=== PATIENT | male | born 1935 | race Caucasian/White ===

== ENCOUNTER 2017-05-06 00:58 | Emergency (ER) | payer OTHER ==
[2017-05-06 01:03] VITALS: RESP 16
[2017-05-06 01:05] VITALS: TEMP 97.9
--- NOTE | 2017-05-06 02:22 | EDPHY ---
H & P Stated Complaint: r big toe injury vs hit against curb Time Seen by Provider: 05/06/17 02:03 HPI/ROS: HPI The patient presents with a fall which occurred earlier this evening in which he hit his great toe on a curb. He has had intermittent pain which is achy in nature and not associated with any numbness or tingling. He took Tylenol without any improvement of his pain. He was unable to sleep so came into the emergency room. REVIEW OF SYSTEMS Constitutional: No fever, no chills. Musculoskeletal: No back pain. Skin: No rashes. Neurological: No headache. PMHx: History of rheumatoid arthritis Soc Hx: Lives independently PHYSICAL General Appearance: Alert, no distress Neurological: A&O, moves all extremities Skin: Warm and dry, no rashes Extremities: right great toe with lateral abrasion, tenderness to the lateral digit with full range of motion, brisk capillary refill, no subungual hematoma Psychiatric: Patient is oriented X 3, there is no agitation Source: Patient Exam Limitations: No limitations - Personal History Current Tetanus/Diphtheria Vaccine: Yes - Medical/Surgical History Hx Asthma: No Hx Chronic Respiratory Disease: No Hx Diabetes: No Hx Cardiac Disease: No Hx Renal Disease: No Hx Cirrhosis: No Hx Alcoholism: No Hx HIV/AIDS: No Hx Splenectomy or Spleen Trauma: No Other PMH: Rheumatoid arthritis, appy, knee replacement, knee meniscus repair, hip replacement - Social History Smoking Status: Former smoker Constitutional: Initial Vital Signs Temperature (C) 36.6 C 05/06/17 00:59 Heart Rate 70 05/06/17 00:59 Respiratory Rate 16 05/06/17 00:59 Blood Pressure 167/109 H 05/06/17 00:59 O2 Sat (%) 91 L 05/06/17 00:59 O2 Delivery Mode Room Air Allergies/Adverse Reactions: No Allergies [NKDA] Allergy (Verified 05/06/17 01:02) Home Medications: Medication Instructions Recorded Methotrexate Sodium/Pf 04/20/14 [Methotrexate 200 mg/8 ml Vial] Simzia 04/20/14 Medical Decision Making - Diagnostics Imaging Results: X-ray right foot two views shows possible avulsion fracture of the proximal phalanx laterally, no dislocation, interpreted by me, radiology interpretation is pending. Imaging: I viewed and interpreted images myself Differential Diagnosis: This is an 81-year-old healthy male who presents with a injury to his right great toe. Differential diagnosis includes fracture, dislocation, sprain. In the emergency department, x-rays were obtained which show likely small avulsion fracture off of the proximal phalanx. The patient was offered a cast shoe however declined. I have advised that he can take ibuprofen and Tylenol as needed for pain. I have given him information for podiatry follow-up. We have discussed wound care for the small abrasion that he has. Departure - Departure Disposition: Home, Routine, Self-Care Clinical Impression: Toe pain, right, Fracture of proximal phalanx of toe Condition: Good Instructions: Toe Fracture (ED) Additional Instructions: I recommend you use ice, elevation, ibuprofen 400 mg and acetaminophen 1000 mg every 6 hours as needed for pain. Please return to the emergency room if your worse in any way. I have given you information for follow-up with the correctional medicine physician if your pain continues for more than a few days. Referrals: Rodríguez Gibson MD [Primary Care Provider] - As per Instructions Grzegorz Colin DPM [Doctor of Podiatric Medicine] - As per Instructions
[2017-05-06 02:34] VITALS: BP 150/87; PULSE 81; O2SAT 93
== END 2017-05-06 02:34 | disposition home or self-care (01) ==
DX: S92.411A Displaced fracture of proximal phalanx of right great toe, initial encounter for closed fracture (principal); Z87.891 Personal history of nicotine dependence; W18.00XA Striking against unspecified object with subsequent fall, initial encounter